=== PATIENT | female | born 1945 | race Caucasian/White ===

== ENCOUNTER 2021-02-12 10:58 | Outpatient (RCR) | payer MEDICARE, SELFPAY ==
--- NOTE | 2021-02-12 12:25 | OTOPEVAL ---
Thank you for referring Sabrina Alexandra to [facility].? The patient is scheduled to be seen for therapy? ____x/week for ___ weeks. Please review, sign, date and return this plan of care GUS. I agree with and certify that the following plan of care is medically necessary. Referring Physician Date Admitting Provider: Attending Provider: Luna Montenegro, BUTTON BUT[employer] MARKER Referring Provider: *OT Outpatient Evaluation Start: 02/12/21 10:27 Freq: Status: Active Protocol: Document 02/12/21 10:52 [facility] (Rec: 02/12/21 11:55 [facility] [id number]) Therapy Assessment Status Assessment Status Assessment Status Evaluation Outpatient Past Medical History Cardiovascular History Hx Hypertension Yes Evaluation Information Problem Diagnosis L wrist pain Onset 12/04/20 Cause De Quervain's tenosynovitis, left Subjective Information Patient reports that she Query Text:As Reported By Patient/ received an injection in her L Family wrist last week and the pain has been better; however she continues to feel it. Patient reports that this pain has been going on for approximately ~2 months. Patient reports that she feels pain when she turns or grabs something wrong. Patient reports that she has been wearing a thumb spica splint at night. Patient reports that she enjoys crocheting and attending Bible Study. Patient reports that she notices pain in her L wrist when she is holding onto something for an extended amount of time. Diagnostic Tests X-Rays For This Problem Yes Prior Level of Function Activity Level (Last 3 Months) Occupation retired Hand Dominance Right Activity of Daily Living Ability Independent Indoor/Home Mobility Independent Community Mobility Independent Stairs Ability Independent Functional Cognition (Planning, Shopping Independent , Taking Medications) Cooking Yes Cleaning Yes Laundry Yes Shopping Yes Driving Yes Home Setting Home Type House Living Situatio
== END 2021-03-16 11:20 | disposition home or self-care (01) ==
LOC: CHSOT 10:58
PROVIDERS: Visit Provider Nurse Practitioner Family
DX: M65.4 Radial styloid tenosynovitis [de Quervain] (principal)
CPT/HCPCS: 97035; 97110; 97140; 97165

== ENCOUNTER 2023-06-06 13:39 | Outpatient (RCR) | payer MEDICARE, BC, SELFPAY ==
--- NOTE | 2023-06-06 16:41 | OPREHPOC ---
Outpatient Therapy Plan of Care This is a Multidisciplinary Plan of Care that may contain components documented by all disciplines (PT, OT, and ST.) PT Problem 1 PT Problem #1 Knowledge Deficit PT Goal 1 Goal Patient to demonstrate independence with HEP Target Visit 6 PT Problem 2 PT Problem #2 Pain PT Goal 1 Goal 1. Patient to report highest pain at 2/10 2. Paitent to report no pain with reading Target Visit 12 PT Problem 3 PT Problem #3 Impaired Range of Motion PT Goal 1 Goal Patient to demonstrate 60 deg of B cervical rotation to improve ability to look over her shoulder when performing house hold tasks Target Visit 12 PT Problem 4 PT Problem #4 Impaired Functional Mobil PT Goal 1 Goal 1. Patient to report ability to do dishes with no increase in pain. 2. Patient to report ability to reach into cabinet with no increase in pain. 3. Patient to report ability to make the bed with no increase in pain. Target Visit 12
--- NOTE | 2023-06-06 16:42 | PTOPEVAL1 ---
Assessment and note entered by Pascale Gray DPT Evaluation Information Assessment Status Evaluation Diagnosis upper back and neck pain Onset 06/03/23 Subjective Information Patient reports she has had upper back and neck pain in Dec or January that has progressively gotten worse. She reports pain is between the shoulder blades and up into the neck. She reports doing dishes, lifting, making the bed and reaching into cabinets all increase pain. She denies numbness or tingling. Patient ibuprofen helps to decrease pain. Patient is retired but does house hold tasks Reported Pain Level Pain Score 8,8: Self Report Assessment PT Clinical Summary Patient is 77 year old female who presents to PT with upper back and neck pain. Patient demonstrates decreased cervical ROM, hypo mobility of the cerivcal and thoracic spine and decreased flexibility of the B upper traps impairing her ability to do dishes, lift, make the bed and reach into the cabinet. Patient would benefit from skilled PT to address impairments and return to PLOF. Plan of Care Interventions Electrical Stimulation,Hot Pack/Cold Pack,Manual Therapy,Mechanical Traction,Neuro Re-education, Patient/Caregiver Educati,Therapeutic Activities, Therapeutic Exercise PT Services Indicated Yes Treatment Frequency and 2x weekly for 12 visits Duration These treatments will address the objective and functional deficits as defined above. The patient will be advanced safely and appropriately in order for the patient to progress towards his/her prior level of function. Additional exercises will be introduced and as well as a comprehensive home exercise program upon discharge, if needed, ?to ensure carryover of functional gains achieved in the clinic. This treatment plan has been reviewed and agreement upon by the patient.
--- NOTE | 2023-07-09 11:37 | OPREHPOC ---
Outpatient Therapy Plan of Care This is a Multidisciplinary Plan of Care that may contain components documented by all disciplines (PT, OT, and ST.) PT Problem 1 PT Problem #1 Knowledge Deficit PT Goal 1 Goal Patient to demonstrate independence with HEP Target Visit 6 Progress Met PT Problem 2 PT Problem #2 Pain PT Goal 1 Goal 1. Patient to report highest pain at 2/10 2. Paitent to report no pain with reading Target Visit 12 Progress Partially Met PT Problem 3 PT Problem #3 Impaired Range of Motion PT Goal 1 Goal Patient to demonstrate 60 deg of B cervical rotation to improve ability to look over her shoulder when performing house hold tasks Target Visit 12 Progress Partially Met Comment progression made with R rotation active rom PT Problem 4 PT Problem #4 Impaired Functional Mobil PT Goal 1 Goal 1. Patient to report ability to do dishes with no increase in pain. 2. Patient to report ability to reach into cabinet with no increase in pain. 3. Patient to report ability to make the bed with no increase in pain. Target Visit 12 Progress Partially Met
--- NOTE | 2023-07-09 11:37 | PTOPPROGNS ---
Assessment and note entered by JT File, PT Evaluation Information Assessment Status Progress Diagnosis upper back and neck pain Onset 06/03/23 Subjective Information patient reports she feels Better overall. she reports she has no pain at rest in the neck or upper back. however, she still has pain with driving as she is unable to turn the neck. she reports she is compliant with her HEP, but did miss a few exercises this weekend due to a busy schedule. Assessment PT Clinical Summary mrs. salguero presents to skilled PT services for her 10th skilled therapy visit. she continues to display deficits in cervical mobility, and driving due to pain and reduced cervical rotation. she has met goals for HEP performance, and made progress towards all other goals of rom and functional activity performance. she would benefit from continued skilled PT per her initial poc to achieve her remaining goals. Plan of Care Interventions Electrical Stimulation,Hot Pack/Cold Pack,Manual Therapy,Mechanical Traction,Neuro Re-education, Patient/Caregiver Educati,Therapeutic Activities, Therapeutic Exercise PT Services Indicated Yes Treatment Frequency and continue skilled PT for 2 more visits per her Duration initial POC These treatments will address the objective and functional deficits as defined above. The patient will be advanced safely and appropriately in order for the patient to progress towards his/her prior level of function. Additional exercises will be introduced and as well as a comprehensive home exercise program upon discharge, if needed, ?to ensure carryover of functional gains achieved in the clinic. This treatment plan has been reviewed and agreement upon by the patient.
--- NOTE | 2023-07-15 11:48 | PTOPDC ---
Assessment and note entered by Brynn Lagos, PT Evaluation Information Assessment Status Discharge Diagnosis Upper back and neck pain Onset 06/03/23 Subjective Information Sabrina Alexandra reports her neck and upper back pain are about the same as last week. She has noticed the upper back pain has gone almost completely away but she still has pain and stiffness in her neck. The stiffness and pain limits her ability to turn her head which leads to difficulty with driving. Reported Pain Level Pain Score 4,0: Self Report Assessment PT Clinical Summary Sabrina Alexandra has completed 12 skilled PT visits for upper back and neck pain. She is reporting mostly resolved upper back pain but continues to have stiffness and mild pain when she turns her head which leads to limitations with driving. She objectively demonstrates improved cervical AROM, improved upper back strength, and less tenderness. She does still have mild limitations in bilateral shoulder strength and decreased cervical AROM. She is independent in a home exercise program to continue after discharge. Plan of Care PT Services Indicated No
== END 2023-07-15 09:56 | disposition home or self-care (01) ==
LOC: CHSPT 13:39
PROVIDERS: PCP Family Medicine; Visit Provider Family Medicine
DX: M54.6 Pain in thoracic spine (principal)
CPT/HCPCS: 97014; 97110; 97140; 97161; G0283

== ENCOUNTER 2024-10-05 09:26 | Outpatient (CLI) | payer MEDICARE, SELFPAY ==
--- NOTE | ~2024-10-05 | US_ITS ---
EXAMINATION: US retroperitoneal duplex ltd DATE: 10/05/2024 10:04 INDICATION: Uncontrolled hypertension. TECHNIQUE: Multiple grayscale, color Doppler, and pulsed Doppler images of the kidneys and renal maricarmen rashmi were obtained. COMPARISON: None. FINDINGS: The aorta peak systolic velocity is 108 cm/s. Right kidney measures 8.3 cm. The right renal artery pe ak systolic velocity is 75 cm/s in the proximal segment, 103 cm/s in the mid segment, and 114 cm/s in the distal segment. Left kidney measures 10.2 cm. The left renal artery peak systolic velocity is 86 cm/s in the proximal segment, 71 cm/s in the mid segment, and 64 cm/s in the distal segment. IMPRESSION: 1. No Doppler evidence of renal artery stenosis. 2. Mild atrophy of right kidney. Reviewed, dictated and finalized at location A. [facility] SORTER
== END 2024-10-05 09:27 | disposition home or self-care (01) ==
LOC: CHSIMG 09:29
PROVIDERS: PCP Family Medicine; Visit Provider Family Medicine
DX: I10 Essential (primary) hypertension (principal); N26.1 Atrophy of kidney (terminal)
CPT/HCPCS: 93976

== ENCOUNTER 2024-12-15 10:54 | Outpatient (RCR) | payer MEDICARE, SELFPAY ==
--- NOTE | 2024-12-15 11:55 | OPREHPOC ---
Outpatient Therapy Plan of Care This is a Multidisciplinary Plan of Care that may contain components documented by all disciplines (PT, OT, and ST.) PT Problem 1 PT Problem #1 Knowledge Deficit PT Goal 1 Goal / Goal Update The patient will be independent in a home exercise program. Target Visit 2 PT Problem 2 PT Problem #2 Pain PT Goal 1 Goal / Goal Update The patient will report no pain with all daily activities. Target Visit 4 PT Problem 3 PT Problem #3 Impaired Functional Mobility PT Goal 1 Goal / Goal Update The patient will demonstrate 0% self perceived disability per the Back Index questionnaire. Target Visit 4
--- NOTE | 2024-12-15 11:55 | PTOPEVAL1 ---
Assessment and note entered by Brynn Lagos, PT Evaluation Information Assessment Status Evaluation ICD-10 Condition Codes (PT) Pain in Thoracic Spine M54.6 Other ICD-10 Condition Codes ( M47.894 PT) Onset 12/03/24 Subjective Information Sabrina Alexandra reports on 12/03/24 she got a stabbing on her left shoulder blade as she was reaching out with her right arm getting her medicine ready for the next week. She continued to get sharp pain off and on when she would reach with her right arm and now sometimes when she moves her left arm. She went to her doctor and had x-rays that were normal. She was diagnosed with facet syndrome and sent to PT. Her pain has been improving and she is not having pain daily. She gets a little twinge occasionally with showering and reaching. Reported Pain Level Pain Score 0: Self Report Assessment PT Clinical Summary Sabrina Alexandra presents with occasional left upper back pain that started spontaneously on 12/03. Pain has been decreasing and is no longer happening daily. She was having pain with reaching and showering. She has difficulty occasionally with bathing/grooming. She objectively demonstrates tenderness at T5 and decreased posture. She will benefit from skilled PT to address these limitations. Plan of Care Interventions Patient/Caregiver Education,Therapeutic Activities ,Therapeutic Exercise PT Services Indicated Yes Treatment Frequency and 1 time a week for 4 visits Duration These treatments will address the objective and functional deficits as defined above. The patient will be advanced safely and appropriately in order for the patient to progress towards his/her prior level of function. Additional exercises will be introduced and as well as a comprehensive home exercise program upon discharge, if needed, ?to ensure carryover of functional gains achieved in the clinic. This treatment plan has been reviewed and agreement upon by the patient.
--- NOTE | 2025-01-06 16:14 | OPREHPOC ---
Outpatient Therapy Plan of Care This is a Multidisciplinary Plan of Care that may contain components documented by all disciplines (PT, OT, and ST.) PT Problem 1 PT Problem #1 Knowledge Deficit PT Goal 1 Goal / Goal Update The patient will be independent in a home exercise program. Target Visit 2 Progress Met PT Goal 2 Goal / Goal Update continue to progress Target Visit 9 PT Problem 2 PT Problem #2 Pain PT Goal 1 Goal / Goal Update The patient will report no pain with all daily activities. Target Visit 4 Progress Not Met PT Goal 2 Goal / Goal Update continue Target Visit 9 PT Problem 3 PT Problem #3 Impaired Functional Mobility PT Goal 1 Goal / Goal Update The patient will demonstrate 0% self perceived disability per the Back Index questionnaire. Target Visit 4 Progress Not Met PT Goal 2 Goal / Goal Update continue Target Visit 9
--- NOTE | 2025-01-06 16:14 | PTOPPROG ---
Assessment and note entered by Brynn Lagos, PT Evaluation Information Assessment Status Progress ICD-10 Condition Codes (PT) Pain in Thoracic Spine M54.6 Other ICD-10 Condition Codes ( M47.894 PT) Onset 12/03/24 Subjective Information Sabrina Alexandra reports she has been doing her home exercises but it seems like her upper back pain is still lingering and is getting worse. She continues to note difficulty reaching with the left arm which makes daily activities like showering, reaching to overhead cabinets, cooking, and cleaning hard to complete. She does feel the pain has moved to the center of her spine and no longer located on the left shoulder blade. Assessment PT Clinical Summary Sabrina Alexandra has completed 3 skilled PT visits for thoracic spine pain. She was having minimal pain at her initial evaluation so she was instructed in a home exercise program and was seen 1 time a week. She presents this week with c/o pain increasing and she is having more difficulty with reaching. 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 She demonstrates tenderness in the bilateral middle trapezius muscles, decreased thoracic PA mobility, weakness in scapular muscles , and decreased posture. She will continue to benefit from skilled PT to further address these limitations. We will increase PT to 2 times weekly due to increase pain. Plan of Care Interventions Electrical Stimulation,Hot Pack/Cold Pack,Manual Therapy,Neuro Re-education,Patient/Caregiver Education,Therapeutic Activities,Therapeutic Exercise PT Services Indicated Yes Treatment Frequency and Continue PT 2 times weekly for 6 visits Duration These treatments will address the objective and functional deficits as defined above. The patient will be advanced safely and appropriately in order for the patient to progress towards his/her prior level of function. Additional exercises will be introduced and as well as a comprehensive home exercise program upon discharge, if needed, ?to ensure carryover of functional gains achieved in the clinic. This treatment plan has been reviewed and agreement upon by the patient.
--- NOTE | 2025-01-26 14:59 | OPREHPOC ---
Outpatient Therapy Plan of Care This is a Multidisciplinary Plan of Care that may contain components documented by all disciplines (PT, OT, and ST.) PT Problem 1 PT Problem #1 Knowledge Deficit PT Goal 1 Goal / Goal Update The patient will be independent in a home exercise program. Target Visit 2 Progress Met PT Goal 2 Goal / Goal Update continue to progress Target Visit 9 Progress Met PT Problem 2 PT Problem #2 Pain PT Goal 1 Goal / Goal Update The patient will report no pain with all daily activities. Target Visit 4 Progress Not Met PT Goal 2 Goal / Goal Update continue Target Visit 9 Progress Met PT Problem 3 PT Problem #3 Impaired Functional Mobility PT Goal 1 Goal / Goal Update The patient will demonstrate 0% self perceived disability per the Back Index questionnaire. Target Visit 4 Progress Not Met PT Goal 2 Goal / Goal Update score on 01/26/25 was 2% Target Visit 9 Progress Partially Met
--- NOTE | 2025-01-26 14:59 | PTOPDC ---
Assessment and note entered by Brynn Lagos, PT Evaluation Information Assessment Status Discharge ICD-10 Condition Codes (PT) Pain in Thoracic Spine M54.6 Other ICD-10 Condition Codes ( M47.894 PT) Onset 12/03/24 Subjective Information Sabrina Alexandra reports her upper back pain has mostly resolved. She is back to performing cooking , cleaning, reaching overhead, and showering without difficulty. She does note occasional pain with heavier lifting. She feels she is doing well enough to be discharged. She does reports chronic right neck pain and left shoulder soreness that will come and go and occasionally interfere with her ability to drive. Reported Pain Level Pain Score 0,1: Self Report Assessment PT Clinical Summary Sabrina Alexandra has completed 8 skilled PT visits for thoracic spine pain. She is reporting mostly resolved upper back pain and no difficulty with reaching, showering, cooking, and cleaning. She still has occasional pain with lifting. She demonstrates resolved tenderness in the bilateral middle trapezius muscles, improved scapular and shoulder strength, and improved posture. She will be discharged to an independent [facility]. Plan of Care PT Services Indicated No
== END 2025-01-26 16:01 | disposition home or self-care (01) ==
LOC: CHSPT 10:54
PROVIDERS: Visit Provider Family Medicine
DX: M47.894 Other spondylosis, thoracic region (principal)
CPT/HCPCS: 97014; 97110; 97112; 97140; 97161; 97750; G0283